=== PATIENT | male | born 2005 | race Caucasian/White ===

== ENCOUNTER → 2023-11-05 14:50 | Outpatient (BNVA) | payer MEDICAID, SELFPAY | PROVIDERS: Visit Provider Psychiatry & Neurology Psychiatry | DX: F84.0 Autistic disorder (principal); Z79.899 Other long term (current) drug therapy; F63.81 Intermittent explosive disorder | CPT/HCPCS: 80053; 80061; 80164; 83036; 84443; 85025 ==

== ENCOUNTER 2024-05-19 16:08 | Emergency (ER) | payer MEDICAID, SELFPAY ==
[2024-05-19 16:10] VITALS: BP 116/75; PULSE 71; TEMP 36.9; O2SAT 95
--- NOTE | 2024-05-19 16:12 | ECG_ITS ---
[facility] Test Date: 2024-05-19 Pat Name: Neeraj Castellanos Department: Room: Gender: Male Relations Mgr: : [id number] Requested By: Jacob Kern Order Number: [id number] Ontiveros MD: VANDANA MARTE Measurements Intervals [place] Rate: 64 P: 27 [place]: 142 QRS: 64 QRSD: 98 T: 32 QT: 379 QTc: 393 Interpretive Statements SINUS RHYTHM WITH SINUS ARRHYTHMIA No previous ECG available for comparison Electronically Signed On 05-20-2024 20:24:06 CDT by VANDANA MARTE [id number]
--- NOTE | 2024-05-19 16:13 | W.ED.PSYCHS ---
Documented by User: Jacob Kern MD 05/20/24 17:53 HPI - Psych General: Chief Complaint: Psychiatric Symptoms Stated Complaint: si Time Seen by Provider: 05/19/24 16:08 Source: patient and EMS Mode of arrival: EMS Limitations: no limitations History of Present Illness: 18-year-old male that is a perfect partners states he had been depressed today and upset that he had grabbed a knife and took it to his throat and told his caregiver that he wanted to kill himself. Patient states he is not suicidal at this moment was still states he is quite depressed. Had a previous admission to [facility], [place], operated by [facility] roughly a year ago no admissions since then. Associated symptoms: Reports depression and suicidal ideation Related Data Home Medications Medication Instructions Recorded Confirmed ydnelie-wmgakwb-ymnhtr 1.7 %-0.7 ea topical DAILY PRN 01/31/24 04/26/24 %-0.4 % topical ointment ceramides 1,3,3-QR-jlgceuvelej 1 applic topical BID 01/31/24 04/26/24 topical cleanser (CeraVe Foaming Facial topical cleanser) cetirizine 10 mg tablet (All Day 10 mg PO DAILY PRN 01/31/24 04/26/24 Allergy (cetirizine)) cetyl and stearate 1 applic topical BID PRN 01/31/24 04/26/24 alcohol-propylen glycol-sls topical cream (Cetaphil topical cream) white petrolatum 46.5 % topical 1 applic topical TID PRN 01/31/24 04/26/24 ointment (CeraVe Healing) alum-amy bvcs-vufsjay-qaalgaj ea topical 04/26/24 04/26/24 topical ointment ibuprofen 200 mg tablet 400 mg PO Q8H PRN 04/26/24 04/26/24 Previous Rx's Medication Instructions Recorded melatonin 3 mg capsule 3 mg PO .HS PRN sleep #30 caps 11/05/23 olanzapine 5 mg tablet (Zyprexa) 5 mg PO DAILY PRN agitation #30 11/05/23 tabs cariprazine 3 mg capsule (Vraylar) 3 mg PO DAILY #30 caps 01/31/24 guanfacine 4 mg tablet,extended 4 mg PO DAILY #30 tabs 04/26/24 release 24 hr quetiapine 200 mg tablet (Seroquel) 200 mg PO .HS #30 tabs 04/26/24 Allergies Allergy/AdvReac Type Severity Reaction Status Date / Time red dye AdvReac Intermediate ADR-Agitate Verified 05/19/24 16:21 d Review of Systems Const: Denies: fever(s), chills, body aches or change in appetite ENMT: Denies: throat pain or dental pain Card: Denies: chest pain Resp: Denies: dyspnea GI: Denies: abdominal pain, nausea, vomiting or diarrhea Musc: Denies: neck pain or back pain Skin/Breast: Denies: rash Neuro: Denies: headache(s) Psych: Reports: depression and suicidal ideation PFSH ED PFSH: Medical History (Updated 05/20/24 @ 02:13 by Niki Ledezma MD) Psychiatric care Physical Exam Const: COMMON NORMALS: no acute distress, patient oriented x3 and healthy appearing HENMT: COMMON NORMALS: normocephalic and atraumatic HEAD & SCALP: normocephalic and atraumatic Eye: COMMON NORMALS: Equal, round and reactive pupils present PUPIL: Yes Equal, round and reactive pupils present Neck/C-Spine: COMMON NORMALS: full ROM and supple Chest: COMMONS NORMALS: normal inspection of the chest Resp: COMMON NORMALS: normal respiratory effort Cardio: COMMON NORMALS: regular rate, regular rhythm and No murmurs present (Cardio) RATE: regular rate RHYTHM: regular rhythm Extremity: COMMON NORMALS: normal to inspection and full ROM Neuro: COMMON NORMALS: patient oriented x3, moves all extremities and no focal motor deficits Psych: COMMON NORMALS: mental status grossly normal, Normal thought process present and cooperative THOUGHT PROCESS: Normal thought process present THOUGHT CONTENT: Yes Suicidality present Skin: COMMON NORMALS: no rashes or lesions noted and no wounds GENERAL SKIN EXAM: no rashes or lesions noted Course Vital Signs: Vital signs: Vital Signs Temperature 98.5 F 05/19/24 16:10 Pulse Rate 65 05/19/24 20:45 Respiratory Rate 16 05/19/24 20:45 Blood Pressure 107/64 05/19/24 20:45 Pulse Oximetry 96 05/19/24 20:45 Oxygen Delivery Me thod Room Air 05/19/24 16:10 MDM - Psych Lab Data 05/19/24 16:31 05/19/24 16:31 Laboratory Results WBC 8.09 10^3/uL (4.5-13.0) 05/19/24 16: RBC 5.09 10^6/uL (3.85-5.65) 05/19/24 16: Hgb 15.60 g/dL (13.2-15.6) 05/19/24 16: Hct 46.3 % (37-53) 05/19/24 16: MCV 91.0 fl (82-101) 05/19/24 16: MCH 30.6 pg (27-33) 05/19/24 16: MCHC 33.7 g/dL (30-55) 05/19/24 16: RDW 12.2 % (12.1-15.1) 05/19/24 16: Plt Count 184 10^3/cmm (157-399) 05/19/24 16: MPV 10.6 fL (7.4-10.4) H 05/19/24 16: Neut % (Auto) 63.2 % 05/19/24 16: Lymph % (Auto) 27.9 % 05/19/24 16: [place] % (Auto) 7.8 % 05/19/24 16: Eos % (Auto) 0.4 % 05/19/24 16: Baso % (Auto) 0.6 % 05/19/24 16: Neut # (Auto) 5.11 10^3/uL (1.8-8.0) 05/19/24 16: Lymph # (Auto) 2.3 10^3/uL (1.5-6.5) 05/19/24 16: [place] # (Auto) 0.6 10^3/uL (0.2-0.9) 05/19/24 16: Eos # (Auto) 0.0 10^3/uL (0.0-0.8) 05/19/24 16: Baso # (Auto) 0.1 10^3/uL (0.0-0.1) 05/19/24 16: Nucleated RBC % (auto) 0 % 05/19/24: Nucleated RBCs # 0.0 /100WBC 05/19/24 16:31 Sodium 141 mmol/L (136-145) 05/19/24 16:31 Potassium 3.8 mmol/L (3.5-5.1) 05/19/24 16:31 Chloride 104 mmol/L (98-107) 05/19/24 16:31 Carbon Dioxide 24 mmol/L (22-29) 05/19/24 16:31 Anion Gap 16.8 (5-19) 05/19/24 16:31 BUN 9 mg/dL (6-20) 05/19/24 16:31 Creatinine 1.1 mg/dL (0.7-1.2) 05/19/24 16:31 GFR Calculation 85.3 mL/min (90-130) L 05/19/24 16:31 Glucose 99 mg/dL (65-115) 05/19/24 16:31 Calculated Osmolality 291 mOsm/kg (285-295) 05/19/24 16:31 Calcium 9.2 mg/dL (8.5-10.5) 05/19/24 16:31 Total Bilirubin 0.4 mg/dL (0.15-1.2) 05/19/24 16:31 AST 14 U/L (0-40) 05/19/24 16:31 ALT 10 U/L (0-41) 05/19/24 16:31 Alkaline Phosphatase 88 U/L (40-130) 05/19/24 16:31 Total Protein 7.1 g/dL (6.6-8.7) 05/19/24 16:31 Albumin 4.5 g/dL (3.5-5.2) 05/19/24 16:31 Globulin 2.6 g/dL (1.3-4.6) 05/19/24 16:31 TSH 0.96 uIU/mL (0.27-4.20) 05/19/24 16:31 Free T4 1.22 ng/dL (0.82-1.77) 05/19/24 16:31 Salicylates < 0.3 mg/dL (3-10) L 05/19/24 16:31 Urine Opiates Screen Negative ng/mL (Negative) 05/19/24 16:54 Acetaminophen < 5.0 ug/mL (10-30) L 05/19/24 16:31 Ur Barbiturates Screen Negative ng/mL (Negative) 05/19/24 16:54 Ur Phencyclidine Scrn Negative ng/mL (Negative) 05/19/24 16:54 Ur Amphetamines Screen Negative ng/mL (Negative) 05/19/24 16:54 U Benzodiazepines Scrn Negative ng/mL (Negative) 05/19/24 16:54 Urine Cocaine Screen Negative ng/mL (Negative) 05/19/24 16:54 U Marijuana (THC) Screen Positive ng/mL (Negative) H 05/19/24 16:54 Influenza Type A Ag negative (Negative) 05/19/24 17:20 Influenza Type B Ag negative (Negative) 05/19/24 17:20 RSV Antigen Negative (Negative) 05/19/24 17:26 SARS-CoV-2 Ag (Rapid) negative (Negative) 05/19/24 17:20 No radiology studies performed this visit Discharge Plan Discharge Patient Disposition: Xfer Psychiatric Hosp Clinical Impression: Suicidal ideation, Autism Condition: Stable Coding Level of Care Code ED Car Sweeper for Chg Fwd Documented by User: Niki Ledezma MD 05/20/24 02:13 HPI - Psych General: Chief Complaint: Psychiatric Symptoms Stated Complaint: si Time Seen by Provider: 05/19/24 16:08 Related Data Home Medications Medication Instructions Recorded Confirmed qtrulia-pippgaw-bbdudc 1.7 %-0.7 ea topical DAILY PRN 01/31/24 04/26/24 %-0.4 % topical ointment ceramides 1,3,1-AI-pagihivlobk 1 applic topical BID 01/31/24 04/26/24 topical cleanser (CeraVe Foaming Facial topical cleanser) cetirizine 10 mg tablet (All Day 10 mg PO DAILY PRN 01/31/24 04/26/24 Allergy (cetirizine)) cetyl and stearate 1 applic topical BID PRN 01/31/24 04/26/24 alcohol-propylen glycol-sls topical cream (Cetaphil topical cream) white petrolatum 46.5 % topical 1 applic topical TID PRN 01/31/24 04/26/24 ointment (CeraVe Healing) alum-amy gyqv-bjanzbv-milydnb ea topical 04/26/24 04/26/24 topical ointment ibuprofen 200 mg tablet 400 mg PO Q8H PRN 04/26/24 04/26/24 Previous Rx's Medication Instructions Recorded melatonin 3 mg capsule 3 mg PO .HS PRN sleep #30 caps 11/05/23 olanzapine 5 mg tablet (Zyprexa) 5 mg PO DAILY PRN agitation #30 11/05/23 tabs cariprazine 3 mg capsule (Vraylar) 3 mg PO DAILY #30 caps 01/31/24 guanfacine 4 mg tablet,extended 4 mg PO DAILY #30 tabs 04/26/24 release 24 hr quetiapine 200 mg tablet (Seroquel) 200 mg PO .HS #30 tabs 04/26/24 Allergies Allergy/AdvReac Type Severity Reaction Status Date / Time red dye AdvReac Intermediate ADR-Agitate Verified 05/19/24 16:21 d [facility] ED PFSH: Medical History (Updated 05/20/24 @ 02:13 by Niki Ledezma MD) Psychiatric care Course Vital Signs: Vital signs: Vital Signs Temperature 98.5 F 05/19/24 16:10 Pulse Rate 65 05/19/24 20:45 Respiratory Rate 16 05/19/24 20:45 Blood Pressure 107/64 05/19/24 20:45 Pulse Oximetry 96 05/19/24 20:45 Oxygen Delivery Me thod Room Air 05/19/24 16:10 MDM - Psych Medical Decision Making Differential diagnosis: Patient with reported depression and suicidal ideation. concerns for infection, alcohol intoxication, cardiac issues or other medical problems prior to psychiatric admission. Workup: labwork, ekg ordered to evaluate the pathologies and to clear the patient medically prior to psychiatric admission Lab Review: Laboratory results were reviewed and interpreted by myself the emergency room physician. Lab review: - Medically cleared. - EKG shows no ischemic changes. - Blood alcohol level is negative, -Tylenol and salicylate levels are negative. ?Drug screen and urinalysis are still pending. - No anemia. - BUN and creatinine are within normal limits. Assessment and plan: Psychosis -Admission to neuropsychiatric unit for continued evaluation and treatment. - All lab work was reviewed and interpreted personally by myself, the ER physician - Evaluation and treatment of this problem were appropriate in the emergency setting Lab Data 05/19/24 16:31 05/19/24 16: Laboratory Results WBC 8.09 10^3/uL (4.5-13.0) 05/19/24 16: RBC 5.09 10^6/uL (3.85-5.65) 05/19/24 16: Hgb 15.60 g/dL (13.2-15.6) 05/19/24 16: Hct 46.3 % (37-53) 05/19/24 16: MCV 91.0 fl (82-101) 05/19/24 16: MCH 30.6 pg (27-33) 05/19/24 16: MCHC 33.7 g/dL (30-55) 05/19/24 16: RDW 12.2 % (12.1-15.1) 05/19/24 16: Plt Count 184 10^3/cmm (157-399) 05/19/24 16: MPV 10.6 fL (7.4-10.4) H 05/19/24 16: Neut % (Auto) 63.2 % 05/19/24 16: Lymph % (Auto) 27.9 % 05/19/24 16: [place] % (Auto) 7.8 % 05/19/24 16: Eos % (Auto) 0.4 % 05/19/24: Baso % (Auto) 0.6 % 05/19/24: Neut # (Auto) 5.11 10^3/uL (1.8-8.0) 05/19/24 16: Lymph # (Auto) 2.3 10^3/uL (1.5-6.5) 05/19/24 16: [place] # (Auto) 0.6 10^3/uL (0.2-0.9) 05/19/24 16: Eos # (Auto) 0.0 10^3/uL (0.0-0.8) 05/19/24 16: Baso # (Auto) 0.1 10^3/uL (0.0-0.1) 05/19/24 16:31 Nucleated RBC % (auto) 0 % 05/19/24 16:31 Nucleated RBCs # 0.0 /100WBC 05/19/24 16:31 Sodium 141 mmol/L (136-145) 05/19/24 16:31 Potassium 3.8 mmol/L (3.5-5.1) 05/19/24 16:31 Chloride 104 mmol/L (98-107) 05/19/24 16:31 Carbon Dioxide 24 mmol/L (22-29) 05/19/24 16:31 Anion Gap 16.8 (5-19) 05/19/24 16:31 BUN 9 mg/dL (6-20) 05/19/24 16:31 Creatinine 1.1 mg/dL (0.7-1.2) 05/19/24 16:31 GFR Calculation 85.3 mL/min (90-130) L 05/19/24 16:31 Glucose 99 mg/dL (65-115) 05/19/24 16:31 Calculated Osmolality 291 mOsm/kg (285-295) 05/19/24 16:31 Calcium 9.2 mg/dL (8.5-10.5) 05/19/24 16:31 Total Bilirubin 0.4 mg/dL (0.15-1.2) 05/19/24 16:31 AST 14 U/L (0-40) 05/19/24 16:31 ALT 10 U/L (0-41) 05/19/24 16:31 Alkaline Phosphatase 88 U/L (40-130) 05/19/24 16: Total Protein 7.1 g/dL (6.6-8.7) 05/19/24 16: Albumin 4.5 g/dL (3.5-5.2) 05/19/24 16:31 Globulin 2.6 g/dL (1.3-4.6) 05/19/24 16: TSH 0.96 uIU/mL (0.27-4.20) 05/19/24 16: Free T4 1.22 ng/dL (0.82-1.77) 05/19/24 16:31 Salicylates < 0.3 mg/dL (3-10) L 05/19/24 16:31 Urine Opiates Screen Negative ng/mL (Negative) 05/19/24 16:54 Acetaminophen < 5.0 ug/mL (10-30) L 05/19/24 16:31 Ur Barbiturates Screen Negative ng/mL (Negative) 05/19/24 16:54 Ur Phencyclidine Scrn Negative ng/mL (Negative) 05/19/24 16:54 Ur Amphetamines Screen Negative ng/mL (Negative) 05/19/24 16:54 U Benzodiazepines Scrn Negative ng/mL (Negative) 05/19/24 16:54 Urine Cocaine Screen Negative ng/mL (Negative) 05/19/24 16:54 U Marijuana (THC) Screen Positive ng/mL (Negative) H 05/19/24 16:54 Influenza Type A Ag negative (Negative) 05/19/24 17:20 Influenza Type B Ag negative (Negative) 05/19/24 17:20 RSV Antigen Negative (Negative) 05/19/24 17:26 SARS-CoV-2 Ag (Rapid) negative (Negative) 05/19/24 17:20 Discharge Plan Discharge Patient Disposition: Xfer Psychiatric Hosp Clinical Impression: Suicidal ideation, Autism Condition: Stable Coding Level of Care Code ED Car Sweeper for Adán Wilder
[2024-05-19 16:47] LABS: Basophils # 0.1 10^3/uL (0.0-0.1); Basophils % 0.6 %; Eosinophils % 0.4 %; Hematocrit 46.3 % (37-53); Lymphocytes # 2.3 10^3/uL (1.5-6.5); Lymphocytes % 27.9 %; Mean Corpuscular HGB Conc 33.7 g/dL (30-55); Mean Corpuscular Hemoglobin 30.6 pg (27-33); Mean Platelet Volume 10.6 fL (7.4-10.4); Monocytes # 0.6 10^3/uL (0.2-0.9); Monocytes % 7.8 %; Neutrophils # 5.11 10^3/uL (1.8-8.0); Neutrophils % 63.2 %; Nucleated Red Blood Cells % 0 %; Platelet Count 184 10^3/cmm (157-399); Red Blood Count 5.09 10^6/uL (3.85-5.65); Red Cell Distribution Width 12.2 % (12.1-15.1); White Blood Count 8.09 10^3/uL (4.5-13.0)
[2024-05-19 17:11] LABS: Alanine Aminotransferase 10 U/L (0-41); Albumin Level 4.5 g/dL (3.5-5.2); Alkaline Phosphatase 88 U/L (40-130); Anion Gap 16.8 (5-19); Aspartate Amino Transferase 14 U/L (0-40); Blood Urea Nitrogen 9 mg/dL (6-20); Calcium 9.2 mg/dL (8.5-10.5); Carbon Dioxide 24 mmol/L (22-29); Chloride 104 mmol/L (98-107); Creatinine Clr Calc Pharmacy 109.5739; Free T4 Free Thyroxine 1.22 ng/dL (0.82-1.77); Globulin 2.6 g/dL (1.3-4.6); Glomerular Filtration Rate 85.3 mL/min (90-130); Glucose 99 mg/dL (65-115); Osmolality Calculated 291 mOsm/kg (285-295); Potassium 3.8 mmol/L (3.5-5.1); Sodium 141 mmol/L (136-145); Thyroid Stimulating Hormone 0.96 uIU/mL (0.27-4.20); Total Bilirubin 0.4 mg/dL (0.15-1.2); Total Protein 7.1 g/dL (6.6-8.7)
[2024-05-19 17:12] LABS: Acetaminophen < 5.0 ug/mL (10-30); Salicylate < 0.3 mg/dL (3-10)
[2024-05-19 17:41] LABS: Influenza A by IFA negative (Negative); Influenza B by IFA negative (Negative)
[2024-05-19 17:42] LABS: SARS Covid-2 Antigen negative (Negative)
[2024-05-19 17:42] LABS: RSV Transfer Patient (ED) Negative (Negative)
[2024-05-19 18:56] LABS: Amphetamines Screen Urine Negative (Negative); Barbiturates Screen Urine Negative (Negative); Benzodiazepines Screen Urine Negative (Negative); Cocaine Screen Urine Negative (Negative); Opiate Screen Urine Negative (Negative); PCP Screen Urine Negative (Negative); THC Screen Urine Positive (Negative)
[2024-05-19 20:21] VITALS: BP 107/67; PULSE 65; RESP 16; O2SAT 96
[2024-05-19 20:45] VITALS: BP 107/64; PULSE 65; RESP 16; O2SAT 96
--- NOTE | 2024-05-19 22:28 | PC.NURSE ---
Report was called by Yolanda MCCRAY to Salud MCCRAY at [place]. All questions and concerns were addressed at time of report.
== END 2024-05-19 22:33 ==
PROVIDERS: Emergency Medicine; Emergency Provider Emergency Medicine
DX: R45.851 Suicidal ideations (principal); F84.0 Autistic disorder; Z11.52 Encounter for screening for COVID-19
CPT/HCPCS: 36415; 80053; 80306; 80307; 84439; 84443; 85025; 87426; 87804; 87899; 93005; 99285

== ENCOUNTER → 2025-03-16 13:18 | Outpatient (BNVA) | payer OTHER, SELFPAY | PROVIDERS: Visit Provider Psychiatry & Neurology Psychiatry | DX: F63.81 Intermittent explosive disorder (principal); F33.2 Major depressive disorder, recurrent severe without psychotic features; Z79.899 Other long term (current) drug therapy; F84.0 Autistic disorder | CPT/HCPCS: 80053; 80061; 83036; 84443; 85025 ==